=== PATIENT | male | born 1955 | race Caucasian/White ===

== ENCOUNTER 2017-02-12 22:48 | Inpatient (IN) | payer SELFPAY ==
[2017-02-12] MEDS ORDERED: NS 0.9% 1000 ML* 1,000 ML IV ONE (22:55)
[2017-02-12 23:33] LABS: Hematocrit 35 % (42-52); Hemoglobin 11.3 g/dl (14.0-18.0); Mean Corpuscular HGB Conc 32 g/dl (31-36); Mean Corpuscular Hemoglobin 25 pg (27-31); Mean Corpuscular Volume 76 fL (80-94); Mean Platelet Volume 8 um3 (7.4-10.4); Red Blood Count 4.64 10^6/ul (4.0-5.4); Red Cell Distribution Width 14 % (10.5-15); White Blood Count 9.7 10^3/ul (3.5-10.8)
[2017-02-12 23:43] LABS: Albumin 3.7 g/dL (3.2-5.2); BUN/Creatinine Ratio 19.7 (8-20); C Reactive Protein 22.07 mg/L (< 5.00); Calcium 9.6 mg/dL (8.6-10.3); EGFR African American 57.9 (>60); Globulin 4.7 g/dL (2-4); Potassium 4.3 mmol/L (3.5-5.0); Total Bilirubin 0.4 mg/dL (0.2-1.0); Total Protein 8.4 g/dL (6.4-8.9)
--- NOTE | 2017-02-13 01:47 | ED ---
Hira Mccullough Angela, scribed for Adriana Pretty MD on 02/12/17 at 2328 . Abdominal Pain/Male - HPI Summary HPI Summary: Pt is a 61 y/o male KAMALA from [facility] presenting [facility] c/o mid abdominal pain x3 days. Pt additionally c/o hematuria for 3 months. He is incontinent now. Pt notes he was in an argument earlier today after he was moved to another room at 1600 in [facility]. He reports that his room was where all " and mental health people" are. He states that he is in [facility] as he in unable to ambulate due to neuropathy. PMHx: diabetes. - History of Current Complaint Chief Complaint: EDAbdPain Stated Complaint: PAIN ALL OVER Time Seen by Provider: 02/12/17 22:55 Hx Obtained From: Patient Onset/Duration: Lasting Days Timing: Lasting Days Pain Intensity: 5 Pain Scale Used: 0-10 Numeric Location: Diffuse Radiates: No Associated Signs And Symptoms: Positive: Decreased Appetite, Other - hematuria. Negative: Chest Pain, Back Pain, Constipation, Nausea, Vomiting, Diarrhea - Allergies/Home Medications Allergies/Adverse Reactions: Allergies Allergy/AdvReac Type Severity Reaction Status Date / Time No Known Allergies Allergy Verified 02/12/17 23:00 Home Medications: Home Medications Acetaminophen TAB* 650 mg PO Q8HR PRN 02/13/17 [History Confirmed 02/13/17] Aspirin 81 MG TAB 81 mg PO DAILY 02/13/17 [History Confirmed 02/13/17] Cyclobenzaprine TAB* 5 mg PO Q6HR PRN 02/13/17 [History Confirmed 02/13/17] Flomax CAP* 0.4 mg PO DAILY 02/13/17 [History Confirmed 02/13/17] Gabapentin CAP(*) 200 mg PO BID 02/13/17 [History Confirmed 02/13/17] HumaLOG* 10 units SUBCUT TID WITH MEALS 02/13/17 [History Confirmed 02/13/17] Insulin GLARGINE(*) 38 units SUBCUT BEDTIME 02/13/17 [History Confirmed 02/13/17 ] Ipratropium 0.5MG/2.5ML NEB* 3 ml NEB Q4HR PRN 02/13/17 [History Confirmed 02/13] Maalox Advanced Maximum S 1000-60 mg 30 ml PO Q8HR PRN 02/13/17 [History Confirmed 02/13/17] Magnesium Oxide TAB* 400 mg PO DAILY 02/13/17 [History Confirmed 02/13/17] Zantac TAB (NF) 150 mg PO BID 02/13/17 [History Confirmed 02/13/17] Zofran 4 MG Tab* 4 mg PO Q8HR PRN 02/13/17 [History Confirmed 02/13/17] PMH/Surg Hx/FS Hx/Imm Hx Endocrine/Hematology History: Reports: Hx Diabetes Cardiovascular History: Denies: Hx Hypertension GI History: Reports: Other GI Disorders - Intestinal obstruction, colostomy Infectious Disease History: No Infectious Disease History: Denies: Traveled Outside the [place] in Last 30 Days - Family History Known Family History: Negative: Seizure Disorder - Social History Lives: [place] Alcohol Use: None Substance Use Type: Reports: None Smoking Status (MU): Never Smoked Tobacco Review of Systems Negative: Fever, Chills Eyes: Negative ENT: Negative Cardiovascular: Negative Respiratory: Negative Positive: Abdominal Pain. Negative: Vomiting, Nausea Positive: hematuria Musculoskeletal: Negative Skin: Negative Neurological: Negative All Other Systems Reviewed And Are Negative: Yes Physical Exam Triage Information Reviewed: Yes Vital Signs On Initial Exam: Initial Vitals Temp Pulse Resp BP Pulse Ox 97.0 F 86 20 100/64 100 02/12/17 22:50 02/12/17 22:50 02/12/17 22:50 02/12/17 22:50 02/12/17 22:50 Vital Signs Reviewed: Yes Appearance: Positive: Well-Appearing, No Pain Distress Skin: Positive: Warm, Skin Color Reflects Adequate Perfusion, Dry Eyes: Positive: EOMI, ROSELINE ENT: Positive: Pharynx normal, TMs normal Neck: Positive: Supple, Nontender Respiratory/Lung Sounds: Positive: Clear to Auscultation, Breath Sounds Present. Negative: Rales, Rhonchi, Wheezes Cardiovascular: Positive: RRR. Negative: Murmur, Rub, Other - gallop Abdomen Description: Positive: Nontender, Soft. Negative: Distended, Guarding, Other: - rebound Bowel Sounds: Positive: Present Musculoskeletal: Positive: Strength/ROM Intact. Negative: Edema Left, Edema Right Neurological: Positive: Sensory/Motor Intact, Alert, Oriented to Person Place, Time, CN Intact II-III Psychiatric: Positive: Affect/Mood Appropriate Diagnostics - Vital Signs Vital Signs Temp Pulse Resp BP Pulse Ox 02/12/17 23:04 83 112/66 94 02/12/17 23:02 83 97 02/12/17 23:01 87/70 02/12/17 22:50 97.0 F 88 20 100/64 100 - Laboratory Lab Results: Lab Results 02/12/17 02/12/17 02/12/17 Range/Units 23:18 23:18 23:18 WBC 9.7 (3.5-10.8) 10^3/ul RBC 4.64 (4.0-5.4) 10^6/ul Hgb 11.3 L (14.0-18.0) g/dl Hct 35 L (42-52) % MCV 76 L (80-94) fL MCH 25 L (27-31) pg MCHC 32 (31-36) g/dl RDW 14 (10.5-15) % Plt Count 507 H (150-450) 10^3/ul MPV 8 (7.4-10.4) um3 Neut % (Auto) 65.1 (38-83) % Lymph % (Auto) 25.4 (25-47) % Starr % (Auto) 7.3 (1-9) % Eos % (Auto) 1.4 (0-6) % Baso % (Auto) 0.8 (0-2) % Absolute Neuts (auto) 6.3 (1.5-7.7) 10^3/ul Absolute Lymphs (auto) 2.5 (1.0-4.8) 10^3/ul Absolute Monos (auto) 0.7 (0-0.8) 10^3/ul Absolute Eos (auto) 0.1 (0-0.6) 10^3/ul Absolute Basos (auto) 0.1 (0-0.2) 10^3/ul Absolute Nucleated RBC 0 10^3/ul Nucleated RBC % 0 Sodium 136 (133-145) mmol/L Potassium 4.3 (3.5-5.0) mmol/L Chloride 106 (101-111) mmol/L Carbon Dioxide 22 (22-32) mmol/L Anion Gap 8 (2-11) mmol/L BUN 31 H (6-24) mg/dL Creatinine 1.57 H (0.67-1.17) mg/dL Est GFR ( Amer) 57.9 (>60) Est GFR (Non-Af Amer) 45.0 (>60) BUN/Creatinine Ratio 19.7 (8-20) Glucose 160 H (70-100) mg/dL Lactic Acid 0.9 (0.5-2.0) mmol/L Calcium 9.6 (8.6-10.3) mg/dL Total Bilirubin 0.40 (0.2-1.0) mg/dL AST 29 (13-39) U/L ALT 47 (7-52) U/L Alkaline Phosphatase 85 (34-104) U/L C-Reactive Protein 22.07 H (< 5.00) mg/L Total Protein 8.4 (6.4-8.9) g/dL Albumin 3.7 (3.2-5.2) g/dL Globulin 4.7 H (2-4) g/dL Albumin/Globulin Ratio 0.8 L (1-3) Lipase 13 (11.0-82.0) U/L Result Diagrams: 02/12/17 23:18 02/12/17 23:18 Lab Statement: Any lab studies that have been ordered have been reviewed, and results considered in the medical decision making process. - EKG 0039 Cardiac Rate: NL EKG Rhythm: Sinus Rhythm Abdominal Pain Fem Course/Dx - Course Assessment/Plan: 61 yo male who reportedly got into an altercation with staff at [facility] after a room change and having his meds changed and was sent here as an ama and came in with chief complaint of abd pain but had no pain on evaluation will be admitted to Dr. Barber for care home care - Diagnoses Provider Diagnoses: Shelter care Discharge - Discharge Plan Condition: Stable Disposition: ADMITTED TO [facility] Referrals: No Primary Care Phys,NOPCP [Primary Care Provider] - The documentation as recorded by the Hira ma Angela accurately reflects the service I personally performed and the decisions made by me, Adriana Pretty MD.
[2017-02-13] MEDS ORDERED: Iodixanol* (CONTRAST) 320 MG/ML 100 ML SDV IV ONE (03:43)
[2017-02-13] MEDS ORDERED: Ipratropium 0.5MG/2.5ML NEB* 0.5 MG/2.5 ML NEB.SOLN INH PRN (06:38)
[2017-02-13] MEDS ORDERED: CMCS: Melatonin (NF) 3 MG TAB PO PRN (06:41)
[2017-02-13] MEDS ORDERED: Albuterol 2.5 MG/3 ML NEB.SOL* (0.083%) INH PRN (06:41)
--- NOTE | 2017-02-13 06:43 | HP ---
H&P (Free Text) History and Physical: PCP: none Date/Time: 02/13/2017 0630 CC: abdominal pain, chills, sweats HPI: Mr Ernst is a 61YO male with a convoluted history. Per records & ED staff he has been at [facility] for general deconditioning worsened by diabetic peripheral polyneuropathy. Reportedly he was found obtaining illegal recreational drugs from his girlfriend when she visits and giving her his pain pills to sell. As a result he was transferred to a locked bill 3 months ago. His narcotics were reportedly discontinued yesterday. Per the patient, he has been complaining of abdominal pain, chills, and sweats for the past 3 days without satisfactory evaluation and so called EMS tonight and signed himself out of [facility]. He denies chest pain, SOB, palpitations, N/V/D, fevers, & light-headedness. Evaluation is remarkable for stable vitals, reasonably stable labs, and a CT abd/pel W revealing only cystitis. However a urine CX dated 02/09 was no growth. As such, he would be appropriate for discharge, however, he cannot return to [facility] since he signed out and has no friends or family to call and come get him. As such, he was explained that the only option was to be admitted custodially, which he accepted. PMedHx DM2 w/ peripheral polyneuropathy non-ambulatory at baseline urinary incontinence s/p colostomy for infection large para-stomal hernia w/o obstruction GERD Ambulatory Orders Nursing to reconcile. Acetaminophen TAB* 650 mg PO Q8HR PRN 02/13/17 Aspirin 81 MG TAB 81 mg PO DAILY 02/13/17 Cyclobenzaprine TAB* 5 mg PO Q6HR PRN 02/13/17 Flomax CAP* 0.4 mg PO DAILY 02/13/17 Gabapentin CAP(*) 200 mg PO BID 02/13/17 HumaLOG* 10 units SUBCUT TID WITH MEALS 02/13/17 Insulin GLARGINE(*) 38 units SUBCUT BEDTIME 02/13/17 Ipratropium 0.5MG/2.5ML NEB* 3 ml NEB Q4HR PRN 02/13/17 Maalox Advanced Maximum S 1000-60 mg 30 ml PO Q8HR PRN 02/13/17 Magnesium Oxide TAB* 400 mg PO DAILY 02/13/17 Zantac TAB (NF) 150 mg PO BID 02/13/17 Zofran 4 MG Tab* 4 mg PO Q8HR PRN 02/13/17 Allergies No Known Allergies Allergy (Verified 02/12/17 23:00) PSurgHx colectomy w/ colostomy cholecystectomy tonsillectomy SocHx: former smoker w/ 25PYHS tobacco, mild alcohol use, admits to HX of marijuana, cocaine, & IV opioid abuse; currently homeless; full code status FamHx: Mother passed in her 50s 2nd complications of DM2. Father passed at 91 2nd 'old age'. Brothers x2 are of uncertain causes. ROS: as above, otherwise reviewed and all were negative vitals: Vital Signs Temp 36.1 C 02/12/17 22:50 Pulse 85 02/13/17 06:17 Resp 20 02/12/17 22:50 BP 124/70 02/13/17 06:00 Pulse Ox 99 02/13/17 06:17 Intake & Output 02/12/17 02/12/17 02/13/17 11:59 23:59 11:59 Weight 90.718 kg 90.718 kg Constitutional: NAD, normally developed, overweight white male HEENM: atraumatic; sclera/conjunctiva: non-icteric/clear; hearing: clinically intact; oropharynx: clear, mucosa moist, clear Neck: soft tissue: no nuchal rigidity; thyroid: normal Pulmonary: clear to auscultation bilaterally, good aeration, no accessory muscle use CV: RR/RR, normal S1S2, no carotid bruit, no jugular venous distention, 2+ B DP/ PT, no edema Abdominal: soft, non-distended, non-tender, no rebound/guarding/rigidity, large soft non-tender para-stomal hernia, normoactive bowel sounds, no hepatosplenomegaly or masses, no costovertebral angle tenderness Musculoskeletal: general: grossly intact, no palpable tenderness; gait: non- ambulatory at baseline Integumental: lightly diffusely diaphreatic, normal appearance and texture of exposed skin Psychiatric orientation: AA&O to PPS affect: calm mood: cooperative eye contact: fair content: questionable reliability responses: timely insight: poor to fair Testing: Lab Results 0902/12/17 02/12/17 Range/Units 23:18 23:18 23:18 WBC 9.7 (3.5-10.8) 10^3/ul RBC 4.64 (4.0-5.4) 10^6/ul Hgb 11.3 L (14.0-18.0) g/dl Hct 35 L (42-52) % MCV 76 L (80-94) fL MCH 25 L (27-31) pg MCHC 32 (31-36) g/dl RDW 14 (10.5-15) % Plt Count 507 H (150-450) 10^3/ul MPV 8 (7.4-10.4) um3 Neut % (Auto) 65.1 (38-83) % Lymph % (Auto) 25.4 (25-47) % Borden % (Auto) 7.3 (1-9) % Eos % (Auto) 1.4 (0-6) % Baso % (Auto) 0.8 (0-2) % Absolute Neuts (auto) 6.3 (1.5-7.7) 10^3/ul Absolute Lymphs (auto) 2.5 (1.0-4.8) 10^3/ul Absolute Monos (auto) 0.7 (0-0.8) 10^3/ul Absolute Eos (auto) 0.1 (0-0.6) 10^3/ul Absolute Basos (auto) 0.1 (0-0.2) 10^3/ul Absolute Nucleated RBC 0 10^3/ul Nucleated RBC % 0 Sodium 136 (133-145) mmol/L Potassium 4.3 (3.5-5.0) mmol/L Chloride 106 (101-111) mmol/L Carbon Dioxide 22 (22-32) mmol/L Anion Gap 8 (2-11) mmol/L BUN 31 H (6-24) mg/dL Creatinine 1.57 H (0.67-1.17) mg/dL Est GFR ( Amer) 57.9 (>60) Est GFR (Non-Af Amer) 45.0 (>60) BUN/Creatinine Ratio 19.7 (8-20) Glucose 160 H (70-100) mg/dL Lactic Acid 0.9 (0.5-2.0) mmol/L Calcium 9.6 (8.6-10.3) mg/dL Total Bilirubin 0.40 (0.2-1.0) mg/dL AST 29 (13-39) U/L ALT 47 (7-52) U/L Alkaline Phosphatase 85 (34-104) U/L C-Reactive Protein 22.07 H (< 5.00) mg/L Total Protein 8.4 (6.4-8.9) g/dL Albumin 3.7 (3.2-5.2) g/dL Globulin 4.7 H (2-4) g/dL Albumin/Globulin Ratio 0.8 L (1-3) Lipase 13 (11.0-82.0) U/L ECG, personally reviewed: NSR rate 82, no ischemia CT abd/pel W, personally reviewed: IMPRESSION: Cystitis, which can be correlated with urinalysis. Mild left hydronephrosis may be secondary to bladder edema at the UVJ. Large parastomal hernia without bowel obstruction or inflammation. Impression: 61M presenting with 3 days of cramping abdominal pain, sweats, & chills; recent cessation of narcotics; CT finding of cystitis with a negative urine CX from 02/09/2017 with no safe discharge as he is homeless after signing out of [facility] and is non-ambulatory at baseline DIAGNOSIS & PLAN Primary abdominal pain, sweats, & chills 2nd narcotic withdrawal : monitor with supportive measures as indicated cystitis on CT with a negative urine CX : recheck UA, if negative likely represents interstitial cystitis, may be worked up outpatient ethics : homeless, no safe discharge : signed out of [facility] : manager social work consult for placement Secondary DM2 w/ peripheral polyneuropathy : continue gabapentin : insulin carb ratio diet : A1c 9.3% 01/2017 : basal/bolus/correctional insulin : ACHS glucometry non-ambulatory at baseline : PT/OT consults urinary incontinence : likely 2nd diabetic neuropathy s/p colostomy w/ large para-stomal hernia : no acute issues GERD : omeprazole Admission Rational: SKILLED NURSING DVTp: heparin SQ Code Status: full
--- NOTE | 2017-02-13 08:27 | RAD ---
Indication: Abdominal pain. CT of the abdomen and pelvis was performed without IV contrast administration. Oral contrast was given. Coronal and sagittal reconstructed images were obtained. The lung bases demonstrate no pleural fluid, nodules or masses. Heart is of normal size without evidence of pericardial effusion. The liver is normal in size. No focal lesions or intrahepatic ductal dilatation is noted. The spleen is normal in size. The pancreas demonstrates no mass or pancreatic duct dilatation. The patient is status post cholecystectomy. The pancreas demonstrates no mass or pancreatic ductal dilatation. Focal wall thickening is noted at the descending duodenum. I cannot totally exclude peptic ulcer disease. No adrenal masses are noted. Moderate degree of left hydronephrosis and hydroureter is noted extending into the urinary bladder. There is diffuse wall thickening of the urinary bladder of uncertain origin. Possibility of cystitis should be considered. Patient is status post colostomy in the right lower quadrant. There appears to be a large peristomal hernia containing small bowel without evidence of obstruction. Aorta and inferior vena cava are unremarkable. Atherosclerotic aorta is noted. Prostate is enlarged. No hernias are noted. Bony structures demonstrates multilevel degenerative disc disease. IMPRESSION: Right lower quadrant colostomy with large peristomal hernia. No evidence of intestinal obstruction is noted. There is marked wall thickening of the urinary bladder. I cannot totally exclude cystitis or other urinary bladder pathology. This appears to be resulting in moderate degree of left hydronephrosis and left renal obstruction. No abnormal fluid collections are noted.
[2017-02-13 08:32] LABS: Urine Bacteria Absent (Absent); Urine Bilirubin Negative (Negative); Urine Glucose 1+(50 mg/dL) (Negative); Urine Nitrite Negative (Negative)
[2017-02-13 08:36] LABS: Troponin I 0.01 ng/mL (<0.04)
[2017-02-13] MEDS: Docusate CAP* 100 MG PO SCH ×2 (09:21→21:17)
[2017-02-13] MEDS: Gabapentin CAP(*) 100 MG PO SCH ×2 (09:41→21:17)
[2017-02-13] MEDS: Aspirin EC Low Dose* 81 MG TAB.EC PO SCH (09:42)
[2017-02-13] MEDS: Tamsulosin CAP* 0.4 MG PO SCH (09:42)
[2017-02-13] MEDS ORDERED: Influenza VAC *QUAD* 2017-18* 0.5 ML SYRINGE IM ONE (11:00)
[2017-02-13] MEDS: Acetaminophen TAB* 325 MG PO PRN ×2 (13:05→19:14)
[2017-02-13] MEDS: Insulin LISPRO* 1 UNITS UNIT SUBCUT SCH ×5 (13:05→21:18)
[2017-02-13] MEDS ORDERED: Methadone TAB* 10 MG PO SCH ×2 (17:00→18:00)
--- NOTE | 2017-02-13 17:31 | PN ---
Hospitalist Progress Note Patient's chart reviewed including D/C summary from [facility]. Attempted multiple times to contact someone at [facility] familiar with the patient and the events leading to his hospitalization but was unsuccessful. Information has been passed through nursing/CM/SW that patient may have been selling his prescribed narcotics after "cheeking" them. Also, reportedly was found injecting IV drugs while at [facility] and this led to him being transferred to the locked unit. Unclear when this happened exactly, but either this or cessation of his narcotics caused him to want to sign out AMA and was taken to the hospital. UA is dirty but identical to prior UA with no growth. Seems that the patient has chronic hydronephrosis and has had cystitis in the past. Not convinced this is infectious. Creatinine is at his baseline and is actually much improved from previous hospitalization. Will order Methadone as initially intended at [facility] to prevent possible withdrawal. Will start with 1/2 planned dose (15 mg) as I am not sure how much narcotics the patient was actually ingesting at [facility].
[2017-02-13] MEDS: Methadone TAB* 5 MG PO SCH (17:41)
[2017-02-13] MEDS ORDERED: Insulin GLARGINE(*) 1 UNITS UNIT SUBCUT SCH (21:00)
[2017-02-14] MEDS: Acetaminophen TAB* 325 MG PO PRN ×3 (01:24→17:29)
[2017-02-14] MEDS: Omeprazole CAP* 20 MG PO SCH (05:42)
[2017-02-14] MEDS: Heparin VIAL(*) 5000 UNITS/ML VIAL (FIVE THOUSAND) SUBCUT SCH ×3 (05:42→21:19)
[2017-02-14] MEDS: Insulin LISPRO* 1 UNITS UNIT SUBCUT SCH ×7 (08:47→21:17)
[2017-02-14] MEDS: Tamsulosin CAP* 0.4 MG PO SCH (08:47)
[2017-02-14] MEDS: Aspirin EC Low Dose* 81 MG TAB.EC PO SCH (08:47)
[2017-02-14] MEDS: Gabapentin CAP(*) 100 MG PO SCH ×2 (08:47→21:16)
[2017-02-14] MEDS: Docusate CAP* 100 MG PO SCH ×2 (08:47→21:19)
[2017-02-14] MEDS: Methadone TAB* 5 MG PO SCH (17:29)
[2017-02-15] MEDS: Acetaminophen TAB* 325 MG PO PRN ×3 (00:16→21:44)
[2017-02-15] MEDS: Heparin VIAL(*) 5000 UNITS/ML VIAL (FIVE THOUSAND) SUBCUT SCH ×3 (05:57→21:27)
[2017-02-15] MEDS: Omeprazole CAP* 20 MG PO SCH (05:57)
[2017-02-15] MEDS: Docusate CAP* 100 MG PO SCH ×2 (08:39→21:37)
[2017-02-15] MEDS: Tamsulosin CAP* 0.4 MG PO SCH (08:39)
[2017-02-15] MEDS: Aspirin EC Low Dose* 81 MG TAB.EC PO SCH (08:39)
[2017-02-15] MEDS: Gabapentin CAP(*) 100 MG PO SCH (08:40)
[2017-02-15] MEDS: Insulin LISPRO* 1 UNITS UNIT SUBCUT SCH ×7 (08:40→21:40)
[2017-02-15] MEDS: oxyCODONE/Acetamin 5/325 MG* TAB PO PRN ×3 (10:59→21:38)
[2017-02-15] MEDS: Gabapentin CAP(*) 300 MG PO SCH ×2 (14:01→21:38)
[2017-02-15] MEDS: Methadone TAB* 5 MG PO SCH (17:04)
[2017-02-15] MEDS ORDERED: Insulin GLARGINE(*) 1 UNITS UNIT SUBCUT SCH (18:00)
[2017-02-16] MEDS: oxyCODONE/Acetamin 5/325 MG* TAB PO PRN ×5 (01:52→21:41)
[2017-02-16] MEDS: Heparin VIAL(*) 5000 UNITS/ML VIAL (FIVE THOUSAND) SUBCUT SCH ×3 (05:37→21:03)
[2017-02-16] MEDS: Omeprazole CAP* 20 MG PO SCH (05:56)
[2017-02-16] MEDS: Gabapentin CAP(*) 300 MG PO SCH ×3 (10:03→20:59)
[2017-02-16] MEDS: Aspirin EC Low Dose* 81 MG TAB.EC PO SCH (10:03)
[2017-02-16] MEDS: Docusate CAP* 100 MG PO SCH ×2 (10:03→21:03)
[2017-02-16] MEDS: Tamsulosin CAP* 0.4 MG PO SCH ×2 (10:04→10:14)
[2017-02-16] MEDS: Insulin LISPRO* 1 UNITS UNIT SUBCUT SCH ×7 (10:04→21:00)
[2017-02-16] MEDS ORDERED: Dextrose 50% Syringe 50 ML* 25 GM/50 ML SYRINGE IV PUSH PRN (13:15)
[2017-02-16] MEDS ORDERED: Insulin LISPRO* 1 UNITS UNIT SUBCUT ONE (13:15)
--- NOTE | 2017-02-16 15:09 | PN ---
Hospitalist Progress Note Approached by nursing staff that patient was hyperglycemic. Reviewed glucose trends. Increased Lantus to 40U nightly.
[2017-02-16] MEDS: Methadone TAB* 5 MG PO SCH (17:00)
[2017-02-16] MEDS ORDERED: Insulin GLARGINE(*) 1 UNITS UNIT SUBCUT SCH (21:00)
[2017-02-16] MEDS: Acetaminophen TAB* 325 MG PO PRN (21:41)
[2017-02-17] MEDS: oxyCODONE/Acetamin 5/325 MG* TAB PO PRN ×2 (02:36→08:20)
[2017-02-17] MEDS: Omeprazole CAP* 20 MG PO SCH (05:41)
[2017-02-17] MEDS: Acetaminophen TAB* 325 MG PO PRN (05:41)
[2017-02-17] MEDS: Heparin VIAL(*) 5000 UNITS/ML VIAL (FIVE THOUSAND) SUBCUT SCH ×3 (05:42→20:53)
[2017-02-17] MEDS: Gabapentin CAP(*) 300 MG PO SCH ×3 (08:14→20:49)
[2017-02-17] MEDS: Tamsulosin CAP* 0.4 MG PO SCH (08:14)
[2017-02-17] MEDS: Aspirin EC Low Dose* 81 MG TAB.EC PO SCH (08:15)
[2017-02-17] MEDS: Docusate CAP* 100 MG PO SCH ×2 (08:16→20:53)
[2017-02-17] MEDS: Insulin LISPRO* 1 UNITS UNIT SUBCUT SCH ×7 (09:53→20:48)
[2017-02-17] MEDS: Methadone TAB* 5 MG PO SCH (18:17)
[2017-02-17] MEDS ORDERED: Insulin GLARGINE(*) 1 UNITS UNIT SUBCUT SCH (21:00)
[2017-02-18] MEDS: oxyCODONE/Acetamin 5/325 MG* TAB PO PRN ×2 (03:02→10:32)
[2017-02-18] MEDS: Omeprazole CAP* 20 MG PO SCH (05:24)
[2017-02-18] MEDS: Heparin VIAL(*) 5000 UNITS/ML VIAL (FIVE THOUSAND) SUBCUT SCH ×3 (05:25→13:47)
[2017-02-18] MEDS: Insulin LISPRO* 1 UNITS UNIT SUBCUT SCH ×4 (08:01→13:44)
[2017-02-18] MEDS: Gabapentin CAP(*) 300 MG PO SCH ×2 (08:02→13:45)
[2017-02-18] MEDS: Tamsulosin CAP* 0.4 MG PO SCH (08:02)
[2017-02-18] MEDS: Aspirin EC Low Dose* 81 MG TAB.EC PO SCH (08:02)
[2017-02-18] MEDS: Docusate CAP* 100 MG PO SCH (08:03)
[2017-02-18 10:12] VITALS: BP 130/64
--- NOTE | 2017-02-18 13:05 | DS ---
CC: [facility]* DATE OF ADMISSION: 02/13/2017. DATE OF DISCHARGE: 02/18/2017. PRIMARY CARE PROVIDER: [facility] attending physician. DISCHARGING PROVIDER: LUIS MIGUEL Montemayor. SUPERVISING PHYSICIAN: Dr. Adriane Way * (dictated by LUIS MIGUEL Montemayor). PRIMARY DISCHARGE DIAGNOSIS: Long Term care. SECONDARY DISCHARGE DIAGNOSES: 1. Chronic pain with opiate dependence. 2. History of opiate abuse. 3. Poorly controlled type 2 diabetes with associated peripheral neuropathy. 4. Urinary incontinence. 5. GERD. DISCHARGE MEDICATIONS: 1. Acetaminophen 650 mg p.o. q.6 hours as needed for pain or fever. 2. Maalox 30 ml p.o. q.8 hours as needed for indigestion. 3. Aspirin 81 mg p.o. daily. 4. Flexeril 5 mg p.o. q.6 hours as needed for muscle spasm. 5. Gabapentin 200 mg p.o. b.i.d. 6. Lantus 50 units subcu at bedtime. 7. Humalog 10 units subcu with meals. 8. Ipratropium nebulized solution 0.5 mg inhaled q.4 hours as needed for shortness of breath. 9. Magnesium Oxide 400 mg p.o. daily. 10. Methadone 30 mg p.o. daily. 11. Zofran 4 mg p.o. q.8 hours as needed for nausea. 12. Zantac 150 mg p.o. twice daily. 13. Sodium bicarb 325 mg p.o. b.i.d. 14. Flomax 0.4 mg p.o. daily. Medication changes: Home opiates including MS Contin and Oxycodone discontinued per patient agreement. HOSPITAL IMAGING: CT of the abdomen and pelvis shows right lower quadrant colostomy with peristomal hernia; no evidence of obstruction; there is wall thickening of the urinary bladder which may represent cystitis. HOSPITAL COURSE: This is a 61-year-old gentleman with poorly controlled diabetes with complications including urinary incontinence and peripheral neuropathy with the inability to ambulate, as well as a colostomy in place who presented to the emergency department after leaving [facility] against medical advice. The patient had reportedly been found abusing opiate substances and there was concern about him potentially selling his prescribed narcotics via his girlfriend and the patient was subsequently moved to a locked unit at [facility]. He had become upset with the situation and had called an ambulance to leave [facility] against medical advice which brought him to the emergency department. He was complaining of some abdominal pain, nausea and vomiting, and diarrhea which was presumed to be due to some mild opiate withdrawal at the time of admission. Due to the circumstances of his admission, the patient was submitted under senior care care and multiple referrals were sent to alternate facilities at which point an additional bed was not offered. Please see Social Work notes for more details about this effort. [facility] agreed to accept the patient back after he agreed to sign a patient care agreement which included discontinuing all of his opiate medications with the exception of his Methadone. The patient reluctantly agreed to this arrangement and has plans to return to [facility]. Of note, the patient was hyperglycemic throughout his hospital stay and his Lantus was titrated up to a total dose of 50 units daily. DISPOSITION AND FOLLOW-UP PLAN: The patient is being discharged to [facility] after signing a patient agreement. All opiates, with the exception of his scheduled Methadone, have been discontinued as a qualification for him to return to [facility]. LUIS MIGUEL MONTEMAYOR [id number]/[facility] #: [id number] ANIL
== END 2017-02-18 15:00 | DRG 897 ==
LOC: ED 22:48 → MED 02-13 06:37
PROVIDERS: ADMIT Hospitalist; ATTEND Internal Medicine
PROC: 3E0234Z Introduction of Serum, Toxoid and Vaccine into Muscle, Percutaneous Approach (ICD-10-PCS; principal; 2017-02-13)
DX: F11.23 Opioid dependence with withdrawal (principal); E11.42 Type 2 diabetes mellitus with diabetic polyneuropathy; N13.30 Unspecified hydronephrosis; E11.65 Type 2 diabetes mellitus with hyperglycemia; G89.29 Other chronic pain; N30.91 Cystitis, unspecified with hematuria; K43.5 Parastomal hernia without obstruction or gangrene; R32 Unspecified urinary incontinence; K21.9 Gastro-esophageal reflux disease without esophagitis; Z90.49 Acquired absence of other specified parts of digestive tract; Z87.891 Personal history of nicotine dependence; Z83.3 Family history of diabetes mellitus; Z59.0 Homelessness; Z23 Encounter for immunization; Z93.3 Colostomy status; Z79.82 Long term (current) use of aspirin; Z79.4 Long term (current) use of insulin
CPT/HCPCS: 36415; 74176; 80053; 81003; 81015; 82947; 83605; 83690; 84484; 85025; 86140; 87077; 87086; 87186; 87641; 90686; 93005; 94760; A9270-GY; J1644